=== PATIENT | female | born 1970 | race Caucasian/White ===

== ENCOUNTER 2018-02-15 12:27 | Emergency (ER) | payer SELFPAY ==
[2018-02-15 12:30] VITALS: TEMP 97.7
--- NOTE | 2018-02-15 13:59 | ED.PDOC ---
History of Present Illness - General Chief Complaint: Neuro Symptoms/Deficits Stated Complaint: Chest pressure, SOB, feels strange Time Seen by Provider: 02/15/18 12:39 Source: patient Exam Limitations: no limitations - History of Present Illness Initial Comments: Sonia Moseley 47 y/o female stated her condition initially started as chest pressure 2 days ago had been sweaty felt tingling sensation on both hands mostly fingers and on and off since last started then one day later had crippling headaches stating mostly pain all over her head and she felt unable to raise up her right leg and vision got distorted which comes and goes.Has history of migraine headaches since 14 y/o also has glaucoma and optic nerve damage both eyes case unknown. Denies nausea/vomiting with photophobia.no fever or chills. Timing/Duration: constant, intermittent, other - 2 days ago Severity: moderate Improving Factors: nothing Worsening Factors: nothing Associated Symptoms: other - see hpi Allergies/Adverse Reactions: Allergies Amoxicillin Allergy (Verified 02/15/18 12:51) Unknown Butorphanol [From Stadol] Allergy (Verified 02/15/18 12:51) Other Causes severe itching Clindamycin Allergy (Verified 02/15/18 12:51) Unknown Codeine Allergy (Verified 02/15/18 12:51) Unknown Iodine Allergy (Verified 02/15/18 12:51) Rash Latex Allergy (Verified 02/15/18 12:51) Rash Lidocaine Allergy (Verified 02/15/18 12:51) Meperidine [From Demerol HCl] Allergy (Verified 02/15/18 12:51) Unknown Naproxen Allergy (Verified 02/15/18 12:51) Unknown Penicillins Allergy (Verified 02/15/18 12:51) Unknown Shellfish Allergy Allergy (Verified 02/15/18 12:51) Anaphylaxis Cephalexin [From Keflex] Adverse Reaction (Verified 02/15/18 12:51) Vomitting Procaine [From Novocain] Adverse Reaction (Verified 02/15/18 12:51) Other Caused patient to fall asleep and had trouble waking up. Home Medications: Ambulatory Orders Acetaminophen [Tylenol] 100 mg PO QID PRN 02/15/18 Aspirin [Aspirin EC Low Dose] 81 mg PO BEDTIME 02/15/18 Review of Systems - Review of Systems Constitutional: States: no symptoms reported EENTM: States: no symptoms reported Respiratory: States: no symptoms reported Cardiology: States: see HPI Gastrointestinal/Abdominal: States: no symptoms reported Genitourinary: States: no symptoms reported Musculoskeletal: States: no symptoms reported Skin: States: no symptoms reported Neurological: States: see HPI Past Medical History (General) - Patient Medical History Hx Stroke: No Hx Asthma: Yes Hx Cardiac Disorders: Yes - prolapsed mitral valve Hx Congestive Heart Failure: No Hx Thyroid Disease: - Does have a hx of thyroid nodules Hx Diabetes: No Hx MRSA: No Hx Other PMH: Yes - glaucoma,opti atrophy Surgical History: appendectomy, other - Vaccination History Hx Influenza Vaccination: No Hx Pneumococcal Vaccination: No - Social History Hx Tobacco Use: Yes Years Tobacco Use: 26 Cigarettes Packs Per Day: 20 Hx Alcohol Use: No Hx Substance Use: No Hx Physical Abuse: No Hx Emotional Abuse: No - Female History Patient is a Female of Child Bearing Age (10 -59 yrs old): Yes - Menopause Patient : No Family Medical History - Family History Mother Family History: Unknown Living Status: Still Living Hx Family Hypertension: Yes Hx Family;Other: dad-Felisa Gehrigs disease;mom -AYW,HTN Physical Exam - Physical Exam General Appearance: Alert, Anxious, Comfortable, No apparent distress Eye Exam: bilateral other - decrease vision both eyes Ears, Nose, Throat: hearing grossly normal Neck: non-tender, full range of motion, supple Respiratory: chest non-tender, lungs clear, normal breath sounds, no respiratory distress Cardiovascular/Chest: normal peripheral pulses, regular rate, rhythm, no murmur Peripheral Pulses: radial,right: 2+, radial,left: 2+ Gastrointestinal/Abdominal: normal bowel sounds, non tender, soft, no organomegaly Back Exam: normal inspection, no CVA tenderness, no vertebral tenderness Extremity: no pedal edema, no calf tenderness 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30 Absolute Eos (auto) 0.10 Absolute Basos (auto) 0.10 Neutrophils % 70.3 Lymphocytes % 23.4 Monocytes % 3.8 Eosinophils % 1.4 Basophils % 1.1 PT 10.9 INR 0.960 PTT (SP) 37.7 H D-Dimer, Quantitative < 200 Sodium 140 Potassium 3.7 Chloride 105 Carbon Dioxide 27 Anion Gap 11.7 L BUN 7 Creatinine 0.61 BUN/Creatinine Ratio 11.5 Random Glucose 93 Serum Osmolality 277.1 Calcium 10.0 Magnesium 2.1 Total Bilirubin 0.8 Direct Bilirubin < 0.1 Indirect Bilirubin 0.7 AST 23 ALT 25 Alkaline Phosphatase 71 Creatine Kinase 73 CK-MB (CK-2) 1.3 CK-MB (CK-2) % Not Reportable Troponin I < 0.02 Serum Total Protein 7.5 Albumin 4.7 Urine Color Yellow Urine Appearance Clear Urine pH 7.0 Ur Specific [place] 1.010 Urine Protein Negative Urine Glucose (UA) Negative Urine Ketones Negative Urine Blood Trace-intact H Urine Nitrite Negative Urine Bilirubin Negative Urine Urobilinogen 0.2 Ur Leukocyte Esterase Negative Urine RBC 0-1 Urine WBC 1-3 Ur Epithelial Cells 0 Urine Bacteria 2+ H 02/15/18 16:48 Recommended admit for obs but wants to go home;Avised to come back to ER if symptoms worsen;offered pain medication but with allergies to multiple medications and just wants to take tylenol - Results/Orders Results/Orders: 02/15/18 13:56 Head [CT] Stat 02/15/18 13:59 IV Care:Saline Lock per Protoc QSHIFT 02/15/18 14:00 EKG STAT Laboratory Results - last 24 hr 02/15/18 02/15/18 02/15/18 14:05 14:09 14:09 WBC 6.8 RBC 4.23 Hgb 14.2 Hct 41.6 MCV 98.3 MCH 33.5 H MCHC 34.1 RDW 13.1 Plt Count 142 MPV 9.9 Absolute Neuts (auto) 4.80 Absolute Lymphs (auto) 1.60 Absolute Monos (auto) 0.30 Absolute Eos (auto) 0.10 Absolute Basos (auto) 0.10 Neutrophils % 70.3 Lymphocytes % 23.4 Monocytes % 3.8 Eosinophils % 1.4 Basophils % 1.1 PT 10.9 INR 0.960 PTT (SP) 37.7 H D-Dimer, Quantitative < 200 Sodium 140 Potassium 3.7 Chloride 105 Carbon Dioxide 27 Anion Gap 11.7 L BUN 7 Creatinine 0.61 BUN/Creatinine Ratio 11.5 Random Glucose 93 Serum Osmolality 277.1 Calcium 10.0 Magnesium 2.1 Total Bilirubin 0.8 Direct Bilirubin < 0.1 Indirect Bilirubin 0.7 AST 23 ALT 25 Alkaline Phosphatase 71 Creatine Kinase 73 CK-MB (CK-2) 1.3 CK-MB (CK-2) % Not Reportable Troponin I < 0.02 Serum Total Protein 7.5 Albumin 4.7 Urine Color Yellow Urine Appearance Clear Urine pH 7.0 Ur Specific [place] 1.010 Urine Protein Negative Urine Glucose (UA) Negative Urine Ketones Negative Urine Blood Trace-intact H Urine Nitrite Negative Urine Bilirubin Negative Urine Urobilinogen 0.2 Ur Leukocyte Esterase Negative Urine RBC 0-1 Urine WBC 1-3 Ur Epithelial Cells 0 Urine Bacteria 2+ H 02/15/18 15:22 WBC RBC Hgb Hct MCV MCH MCHC RDW Plt Count MPV Absolute Neuts (auto) Absolute Lymphs (auto) Absolute Monos (auto) Absolute Eos (auto) Absolute Basos (auto) Neutrophils % Lymphocytes % Monocytes % Eosinophils % Basophils % PT INR PTT (SP) D-Dimer, Quantitative Sodium Potassium Chloride Carbon Dioxide Anion Gap BUN Creatinine BUN/Creatinine Ratio Random Glucose Serum Osmolality Calcium Magnesium Total Bilirubin Direct Bilirubin Indirect Bilirubin AST ALT Alkaline Phosphatase Creatine Kinase CK-MB (CK-2) CK-MB (CK-2) % Troponin I < 0.02 Serum Total Protein Albumin Urine Color Urine Appearance Urine pH Ur Specific [place] Urine Protein Urine Glucose (UA) Urine Ketones Urine Blood Urine Nitrite Urine Bilirubin Urine Urobilinogen Ur Leukocyte Esterase Urine RBC Urine WBC Ur Epithelial Cells Urine Bacteria - EKG/XRAY/CT EKG: Dylon, Sinus Comments: heart rate-58 XRAY: chest - no acute abnormalities Departure - Departure Clinical Impression: Chest pressure Headache Qualifiers: Headache type: unspecified Headache chronicity pattern: episodic headache Intractability: not intractable Qualified Code(s): R51 - Headache Time of Disposition: 16:52 Disposition: Discharge to Home or Self Care Condition: Good Departure Forms: ED Discharge - Pt. Copy, Patient Portal Self Enrollment Instructions: DI for Atypical Chest Pain, DI for Migraine, Migraine Headaches ( Alternative Therapy), Tension Headache (Alternative Therapy), Easing a Headache the Natural Way, Migraine Headaches (Alternative Therapy) Home Medications: Ambulatory Orders Acetaminophen [Tylenol] 100 mg PO QID PRN 02/15/18 Aspirin [Aspirin EC Low Dose] 81 mg PO BEDTIME 02/15/18 Additional Instructions: Return to ER as needed ;Need to sign up for primary Md [phone]
--- NOTE | 2018-02-15 14:14 | RAD ---
EXAM DESCRIPTION: Chest,1 View CLINICAL HISTORY: pain COMPARISON: None. IMPRESSION: Single AP portable upright view of the chest shows cardiac silhouette and pulmonary vasculature to be within normal limits. Lungs are normally aerated and clear. No obvious pleural effusion or pneumothorax is seen. Electronically signed by: Fernando Melendez MD 02/15/2018 2:11 PM CDT
[2018-02-15] MEDS: HYDROcodone 5MG/APAP 325MG 1 EA TAB PO ONE ×2 (16:35)
[2018-02-15 17:24] VITALS: BP 141/75; O2SAT 98
== END 2018-02-15 17:35 | disposition home or self-care (01) ==
LOC: ER 12:27
DX: R07.89 Other chest pain (principal); R51 Headache; I34.1 Nonrheumatic mitral (valve) prolapse; Z87.891 Personal history of nicotine dependence; Z79.82 Long term (current) use of aspirin; H40.9 Unspecified glaucoma; Z91.040 Latex allergy status